=== PATIENT | female | born 1945 | race Caucasian/White ===

== ENCOUNTER 2018-01-10 14:52 | Emergency (ER) | payer SELFPAY ==
[~2018-01-10] VITALS: Ht 160 cm; Wt 52.3 kg
[2018-01-10 14:54] VITALS: TEMP 98.7
[2018-01-10] MEDS ORDERED: PRINIVIL20 MG PO ×2 (15:39→16:24)
[2018-01-10] MEDS ORDERED: HYDRODIURIL50 MG PO (15:40)
[2018-01-10] MEDS ORDERED: TENORMIN 2525 MG/TAB PO (15:40)
[2018-01-10] MEDS ORDERED: HCTZ 25MG TAB25 MG PO (16:24)
[2018-01-10] MEDS ORDERED: TENORMIN 5050 MG/TAB PO (16:34)
[2018-01-10 16:45] VITALS: BP 181/90; PULSE 90
== END 2018-01-10 16:45 | disposition home or self-care (01) ==
LOC: COL.ER 14:52
DX: I10 Essential (primary) hypertension (principal); Z59.0 Homelessness

== ENCOUNTER 2018-02-04 11:13 | Emergency (ER) | payer SELFPAY ==
[~2018-02-04] VITALS: Ht 160 cm; Wt 54.5 kg
[~2018-02-04 11:13] MED LIST: HCTZ 25MG TAB25 MG PO; HYDRODIURIL50 MG PO; PRINIVIL20 MG PO; TENORMIN 2525 MG/TAB PO; TENORMIN 5050 MG/TAB PO
[2018-02-04 11:15] VITALS: TEMP 98.4
[2018-02-04 11:45] LABS: BASO # 0.1 (0.0-0.2); BASO % 0.7 % (0.0-2.0); EOS % 0.1 % (0-4.0); GRAN # 5.4 (1.4-6.5); GRAN % 79.4 % (42.2-75.2); HEMOGLOBIN 11.3 g/dl (12.5-16.0); LYMPH # 0.8 (1.2-3.4); LYMPH % 11.7 % (20.0-51.0); MEAN CELL VOLUME 76 fl (80.0-100.0); MEAN CORPUSCULAR HEMOGLOBIN 24 pg (27.0-31.0); MEAN CORPUSCULAR HGB CONC 31 g/dl (33.0-37.0); MEAN PLATELET VOLUME 9.7 fl (7.4-10.4); MONO # 0.6 (0.1-0.6); PLATELET COUNT 424 K/mm3 (130-400); RED BLOOD COUNT 4.76 M/mm3 (4.10-5.30); REDCELL DISTRIBUTION WIDTH-CV 16.5 % (11.5-14.5)
[2018-02-04 11:48] LABS: HEMATOCRIT 36.1 % (37.0-47.0)
[2018-02-04 11:49] LABS: ALANINE AMINOTRANSFERASE 29 U/L (9-52); ALBUMIN 4.5 gm/dL (3.5-5.0); ALKALINE PHOSPHATASE 111 U/L (50-136); ANION GAP 12 mmol/L (7-16); AST,SGOT 25 U/L (15-37); BILIRUBIN,TOTAL 0.6 mg/dL (0.0-1.0); BLOOD UREA NITROGEN 13 mg/dL (7-17); CALCIUM 9.7 mg/dL (8.4-10.2); CARBON DIOXIDE 26 mmol/L (22-30); CHLORIDE 94 mmol/L (98-107); CREATININE, serum 0.55 mg/dL (0.52-1.25); GLUCOSE 106 mg/dL (74-106); MAGNESIUM 1.8 mg/dL (1.6-2.3); POTASSIUM 3.7 mmol/L (3.4-5.0); SODIUM 131 mmol/L (137-145); TOTAL PROTEIN 7.5 gm/dL (6.4-8.2)
[2018-02-04 11:53] LABS: ACETAMINOPHEN < 10 ug/mL (10-30); ALCOHOL(ethanol),MEDICAL < 10 mg/dL; SALICYLATE < 1.0 mg/dL
[2018-02-04] MEDS ORDERED: TENORMIN 5050 MG/TAB PO (11:53)
[2018-02-04 12:43] LABS: COLLECTION METHOD CLEAN CATCH
[2018-02-04 12:52] LABS: PH 7 (5-8); SQUAMOUS EPITHELIAL 0-2 /hpf; URINE APPEARANCE Clear; URINE BACTERIA None Seen /hpf; URINE BILIRUBIN Negative (NEGATIVE); URINE BLOOD 1+ (NEGATIVE); URINE COLOR Straw; URINE GLUCOSE Negative (NEGATIVE); URINE KETONE Negative (NEGATIVE); URINE LEUKOCYTE ESTERASE Negative (NEGATIVE); URINE NITRATE Negative (NEGATIVE); URINE PROTEIN(semi-quant) Negative (NEGATIVE); URINE RBC 0-2 /hpf; URINE UROBILINOGEN Negative (NEGATIVE)
[2018-02-04 13:08] LABS: TRICYCLIC ANTIDEPRESS URINE NEGATIVE
[2018-02-05 19:49] VITALS: BP 154/90; PULSE 90
== END 2018-02-05 19:45 ==
LOC: COL.ER 11:13
PROVIDERS: Emergency Medicine
DX: I10 Essential (primary) hypertension (principal)
CPT/HCPCS: J7030

== ENCOUNTER 2019-11-19 18:31 | Emergency (ER) | payer MEDICAID ==
[~2019-11-19] VITALS: Ht 162.6 cm; Wt 52.3 kg
[2019-11-19 19:10] LABS: BASO % 0.3 % (0.0-2.0); EOS # 0.1 (0.0-0.7); EOS % 0.5 % (0-4.0); GRAN # 11.4 (1.4-6.5); GRAN % 85.8 % (42.2-75.2); HEMATOCRIT 41.9 % (37.0-47.0); HEMOGLOBIN 13.3 g/dl (12.5-16.0); LYMPH % 7.6 % (20.0-51.0); MEAN CELL VOLUME 85 fl (80.0-100.0); MEAN CORPUSCULAR HEMOGLOBIN 27 pg (27.0-31.0); MEAN CORPUSCULAR HGB CONC 32 g/dl (33.0-37.0); MONO # 0.7 (0.1-0.6); MONO % 5.5 % (1.7-9.3); PLATELET COUNT 389 K/mm3 (130-400); RED BLOOD COUNT 4.95 M/mm3 (4.10-5.30); REDCELL DISTRIBUTION WIDTH-CV 15.3 % (11.5-14.5)
[2019-11-19 19:15] LABS: ALBUMIN 4.9 gm/dL (3.5-5.0); BILIRUBIN,TOTAL 0.7 mg/dL (0.0-1.0); CALCIUM 9.8 mg/dL (8.4-10.2); CREATININE, serum 0.98 (0.52-1.25); TOTAL PROTEIN 8.2 gm/dL (6.4-8.2)
[2019-11-19 20:52] LABS: PROTHROMBIN TIME 11.4 SECONDS (9.7-12.8)
[2019-11-19 21:15] VITALS: BP 115/76; PULSE 113; TEMP 98.9
== END 2019-11-19 21:15 | disposition short-term general hospital (02) ==
LOC: COL.ER 18:31
PROVIDERS: Emergency Medicine
DX: S06.5X0A Traumatic subdural hemorrhage without loss of consciousness, initial encounter (principal); Y04.8XXA Assault by other bodily force, initial encounter; Y92.129 Unspecified place in nursing home as the place of occurrence of the external cause
CPT/HCPCS: J3010; J7050